=== PATIENT | male | born 1955 | race Caucasian/White ===

== ENCOUNTER 2022-08-24 06:43 | Emergency (ER) | payer OTHER ==
[~2022-08-24] VITALS: Ht 165.1 cm; Wt 72.6 kg
--- NOTE | 2022-08-24 07:13 | NUR ---
seen and examined by MD Stinson
[2022-08-24] MEDS ORDERED: ALPR0.5T8 PO (07:29)
[2022-08-24] MEDS ORDERED: ROSU10TA29 PO (07:29)
[2022-08-24] MEDS ORDERED: LOSA50TA39 PO (07:29)
[2022-08-24] MEDS ORDERED: KETOROLAC TROMETHAMINE 15 MG INJ IVP ONE ×2 (07:30→08:45)
[2022-08-24] MEDS ORDERED: ACETAMINOPHEN ES 500 MG TABLET PO ONE (07:30)
[2022-08-24] MEDS ORDERED: IV NORMAL SALINE 1000 ML BAG IV ONE (07:30)
[2022-08-24 07:31] LABS: HEMATOCRIT 44.1 % (36.7-47.1); MEAN CORPUSCULAR HEMOGLOBIN 32.8 uug (23.8-33.4); PLATELET COUNT (AUTO) 297 K/uL (152-348)
[2022-08-24] MEDS ORDERED: KETOROLAC TROMETHAMINE 15 MG INJ ONE ×2 (07:36→08:35)
[2022-08-24] MEDS ORDERED: ACETAMINOPHEN 325 MG TABLET ONE (07:36)
--- NOTE | 2022-08-24 07:43 | NUR ---
ct scan in process
[2022-08-24 07:45] LABS: BILIRUBIN,DIRECT 0.1 mg/dL (0.0-0.2); BILIRUBIN,TOTAL 0.3 mg/dL (0.2-1.0); CREATININE 1.1 mg/dL (0.6-1.3); POTASSIUM 4.6 mmol/L (3.5-5.1)
[2022-08-24 07:55] LABS: *BILIRUBIN,URIN NEGATIVE (NEGATIVE); *BLOOD, URINE 1+ (NEGATIVE); *CLARITY,URINE CLEAR (CLEAR); *COLOR,URINE YELLOW (YELLOW); *KETONES,URINE NEGATIVE (NEGATIVE); *UROBILINOGEN,URINE 0.2 E.U./dl (NORMAL); LEUKOCYTE ESTERASE ,URINE NEGATIVE (NEGATIVE); NITRITE, URINE NEGATIVE (NEGATIVE); PH,URINE 5.5 (5.0-8.0); UGLUCOSE NEGATIVE (NEGATIVE)
[2022-08-24 08:14] LABS: BACTERIA,URINE FEW /HPF (NONE SEEN); RBC,URINE 0-3 /HPF (0-3); SQUAMOUS EPITHELIAL CELL,UR FEW /HPF (NONE SEEN); WBC,URINE 0-3 /HPF (0-3)
[2022-08-24 08:18] LABS: CALCIUM OXALATE CRYSTALS,UR MANY /HPF (NONE SEEN)
[2022-08-24] MEDS ORDERED: TAMS-3 PO (08:29)
--- NOTE | 2022-08-24 09:07 | NUR ---
Patient discharged to home in stable condition. Written and verbal after care instructions given. Patient verbalizes understanding of instructions. Stressed follow up or return to ER for worsening s/s.
[2022-08-24 09:08] VITALS: BP 150/60
== END 2022-08-24 09:10 | disposition home or self-care (01) ==
LOC: ER 06:43
DX: N20.0 Calculus of kidney (principal); M54.9 Dorsalgia, unspecified; R31.9 Hematuria, unspecified; E78.5 Hyperlipidemia, unspecified; Z79.899 Other long term (current) drug therapy
CPT/HCPCS: 99285; 74176; 96374; 96361; 80076; 80048; 81001; 83690; 85025; 36415; 93005; 96376; J1885 ×2; J7040; A4663